=== PATIENT | male | born 1935 | race Caucasian/White ===

== ENCOUNTER 2018-08-15 20:25 | Emergency (ER) | payer MEDICARE, BC ==
[2018-08-15] MEDS ORDERED: traMADol 50 MG Tab PO ONE ×2 (20:26→21:00)
--- NOTE | 2018-08-15 20:39 | EDM.PDOC ---
ED HPI GENERAL MEDICAL PROBLEM - General Stated Complaint: SLIPPED ON ICE Time Seen by Provider: 08/15/18 20:36 Source of Information: Reports: Patient History Limitations: Reports: No Limitations - History of Present Illness INITIAL COMMENTS - FREE TEXT/NARRATIVE: Simone fell,after slipping on ice. He complains of a "goose head" and mild headache,mild neck pain and left wrist pain. No LOC. Has DM 2,HTN,CAD all stable. No anticoagulants,but does take baby aspirin. Uptodate on immunizations Headache, L wrist Pain Score (Numeric/FACES): 4 - Related Data Allergies Allergy/AdvReac Type Severity Reaction Status Date / Time No Known Allergies Allergy Verified 08/15/18 20:35 Home Meds: Home Meds Aspirin [Halfprin] 81 mg PO DAILY 08/15/18 [History] Diltiazem HCl [Diltiazem 24Hr ER] 180 mg DAILY 08/15/18 [History] Lisinopril 40 mg DAILY 08/15/18 [History] Omeprazole 20 mg PO DAILY 08/15/18 [History] amLODIPine Besylate [Norvasc] 5 mg PO DAILY 08/15/18 [History] atorvaSTATin [Lipitor] 10 mg PO BEDTIME 08/15/18 [History] metFORMIN HCl [Metformin HCl] 1,000 mg BID 08/15/18 [History] ED ROS GENERAL - Review of Systems Review Of Systems: ROS reveals no pertinent complaints other than HPI. ED EXAM, HEAD INJURY - Physical Exam Exam: See Below Exam Limited By: No Limitations General Appearance: Alert, WD/WN Head: Scalp Swelling, Scalp Hematoma. No: Atraumatic, Active Bleeding, Facial Lacerations Ears: Normal External Exam Nose: Normal Inspection Throat/Mouth: Normal Inspection Extremities: Other (Neck tenderndess.) Neurologic: paste mixer liquid II-XII nml As Tested, No Motor/Sensory Deficits, Alert, Oriented x 3. No: Motor Weakness Skin: Normal Color Course - Vital Signs Last Recorded V/S: Last Vital Signs Temp 97.4 F 08/15/18 20:27 Pulse 99 08/15/18 20:27 Resp 18 08/15/18 20:27 BP 148/65 H 08/15/18 20:27 Pulse Ox 100 08/15/18 20:27 - Orders/Labs/Meds Orders: Active Orders 24 hr Category Date Time Status Cervical Spine wo Cont [CT] Stat Exams 08/15/18 20:35 Taken Head wo Cont [CT] Stat Exams 08/15/18 20:35 Taken Wrist Comp Min 3V Lt [CR] Stat Exams 08/15/18 20:35 Taken Meds: Medications Discontinued Medications Generic Name Dose Route Start Last Admin Trade Name Kadeem PRN Reason Stop Dose Admin Tramadol HCl 50 mg 08/15/18 21:00 08/15/18 21:04 Ultram PO 08/15/18 21:01 50 mg ONETIME ONE Administration Departure - Departure Time of Disposition: 22:14 Disposition: Home, Self-Care 01 Condition: Fair Clinical Impression: Hematoma, Head injury - Discharge Information Referrals: Brian Navas MD [Primary Care Provider] - - Problem List & Annotations (1) Head injury SNOMED Code(s): 90853971 Code(s): S09.90XA - UNSPECIFIED INJURY OF HEAD, INITIAL ENCOUNTER Status: Acute Current Visit: Yes Qualifiers: Encounter type: initial encounter Qualified Code(s): S09.90XA - Unspecified injury of head, initial encounter (2) Hematoma SNOMED Code(s): 489601980 Code(s): T14.8XXA - OTHER INJURY OF UNSPECIFIED BODY REGION, INITIAL ENCOUNTER Status: Acute Current Visit: Yes - Problem List Review Problem List Initiated/Reviewed/Updated: Yes - My Orders Last 24 Hours: My Active Orders 08/15/18 20:35 Cervical Spine wo Cont [CT] Stat Head wo Cont [CT] Stat Wrist Comp Min 3V Lt [CR] Stat - Assessment/Plan Last 24 Hours: My Active Orders 08/15/18 20:35 Cervical Spine wo Cont [CT] Stat Head wo Cont [CT] Stat Wrist Comp Min 3V Lt [CR] Stat Plan: I personally reviewed the CAT scan of the head and neck there was no acute changes. The official report confirmed the same. X-ray of the left wrist was also negative. Simone score dose of tramadol in the ER with some improvement and discharged to home follow up on Friday with PCP. Prescription of Ultram to 50 mg 3 times a day when necessary inflammation and head injury was provided
--- NOTE | 2018-08-17 10:47 | CR ---
INDICATION: Fell on ice. LEFT WRIST: Three views of the left wrist were obtained 08/15/18 and revealed somewhat demineralized appearance, which could be on the basis of osteomalacia but should be correlated clinically. Degenerative changes are noted to a mild degree at the navicular multangular joints and moderate degree at the first metacarpal carpal joints as well as at the first, second and third metacarpal phalangeal joints and interphalangeal joint of the thumb. An acute fracture or dislocation was not identified. Deformity is noted at the mid-shaft--proximal shaft of the 4th metacarpal compatible with a healed fracture site. IMPRESSION: Demineralized without a definite acute fracture or dislocation and with evidence of osteoarthritis. MTDD
== END 2018-08-15 22:40 | disposition home or self-care (01) ==
LOC: FB.ED 20:25
DX: S09.90XA Unspecified injury of head, initial encounter (principal); Z79.82 Long term (current) use of aspirin; Z79.899 Other long term (current) drug therapy; W00.0XXA Fall on same level due to ice and snow, initial encounter
CPT/HCPCS: 70450; 72125; 73110; 99284; A9270

== ENCOUNTER 2021-05-11 15:57 | Emergency (ER) | payer MEDICARE, BC ==
--- NOTE | 2021-05-11 16:24 | EDM.PDOC ---
ED HPI GENERAL MEDICAL PROBLEM - General Stated Complaint: FALL Time Seen by Provider: 05/11/21 16:24 Source of Information: Reports: Patient History Limitations: Reports: No Limitations - History of Present Illness INITIAL COMMENTS - FREE TEXT/NARRATIVE: 86-year-old male who was at a local casino and at about 2:30 PM he was leaving the casino and stepping off of a step and missed step falling forward landing front first striking both of his hands and also his left elbow and his left forehead. There was no loss of consciousness. He did not feel weak or dizzy prior to this occurring. He states that he simply misstepped and fell. He does have pain in the area the rates as a 7-8/10. He has no neck or back pain. The bleeding has been controlled with direct pressure and the nursing staff and dressed the areas. He denies any vision problems. There are no antecedent problems. He reports he felt completely well prior to this. There are no other associated signs or symptoms. There are no other modifying factors. Onset: Today (2:30 PM) Duration: Constant Location: Reports: Head (Left forehead), Upper Extremity, Left, Upper Extremity, Right Quality: Reports: Ache, Sharp Severity: Moderate Improves with: Reports: Rest Worsens with: Reports: Other (Palpation), Movement Context: Reports: Trauma Associated Symptoms: Reports: No Other Symptoms Treatments [employer]: Reports: Other (see below) (Nothing.) - Related Data Allergies Allergy/AdvReac Type Severity Reaction Status Date / Time No Known Allergies Allergy Verified 05/11/21 16:32 Home Meds: Home Meds Aspirin [Halfprin] 81 mg PO DAILY 08/15/18 [History] Lisinopril 40 mg DAILY 08/15/18 [History] Omeprazole 20 mg PO DAILY 08/15/18 [History] amLODIPine Besylate [Norvasc] 5 mg PO DAILY 08/15/18 [History] atorvaSTATin [Lipitor] 10 mg PO BEDTIME 08/15/18 [History] dilTIAZem HCl [Diltiazem 24Hr ER] 180 mg DAILY 08/15/18 [History] metFORMIN HCl [Metformin HCl] 1,000 mg BID 08/15/18 [History] Past Medical History Cardiovascular History: Reports: High Cholesterol, Hypertension, [place], Stents Gastrointestinal History: Reports: Cholelithiasis, GERD Musculoskeletal History: Reports: Arthritis, Fracture, Gout, Other (See Below) Other Musculoskeletal History: hx congenital R wrist, 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, hx fx pelvis, bursitis Endocrine/Metabolic History: Reports: Diabetes, Type II - Infectious Disease History Infectious Disease History: Reports: Chicken Pox, Measles - Past Surgical History HEENT Surgical History: Reports: Adenoidectomy, Cataract Surgery, Oral Surgery, Tonsillectomy Other HEENT Surgeries/Procedures: bilat cataract surgery Cardiovascular Surgical History: Reports: Coronary Artery Stent GI Surgical History: Reports: Cholecystectomy, Colonoscopy, Hernia Repair/Other Social & Family History - Tobacco Use Tobacco Use Status *Q: Unknown Ever Used Tobacco (Nonsmoker.) - Caffeine Use Caffeine Use: Reports: Coffee, Soda - Alcohol Use Alcohol Use History: Yes Alcohol Use Frequency: Socially - Living Situation & Occupation Occupation: Retired ED ROS GENERAL - Review of Systems Review Of Systems: See Below Constitutional: Denies: Fever, Chills HEENT: Denies: Dental Pain, Ear Pain, Vision Change Respiratory: Denies: Shortness of Breath, Cough Cardiovascular: Denies: Chest Pain, Lightheadedness GI/Abdominal: Denies: Abdominal Pain, Nausea, Vomiting : Denies: Dysuria, Frequency Musculoskeletal: Reports: Arm Pain (In.), Hand Pain (Bilateral hand pain). Denies: Neck Pain Skin: Reports: Wound (Wounds on both hands and left elbow that are all skin tears. Abrasion on his left forehead.) Neurological: Denies: Dizziness, Trouble Speaking Psychiatric: Denies: Agitation, Anxiety Hematologic/Lymphatic: Denies: Easy Bleeding, Easy Bruising Immunologic: Reports: Other (Patient was not up-to-date on his tetanus immunization and was given a Tdap.) ED EXAM, GENERAL - Physical Exam Exam: See Below Exam Limited By: No Limitations General Appearance: Alert, WD/WN, Moderate Distress (Appears in some discomfort but otherwise nontoxic.) Eye Exam: Bilateral Eye: EOMI, Normal Inspection Ears: Normal External Exam, Hearing Grossly Normal Ear Exam: Bilateral Ear: Auricle Normal Nose: Normal Inspection, Normal Mucosa, No Blood (No septal hematoma) Throat/Mouth: Normal Inspection, Normal Oropharynx, Normal Voice, No Airway Compromise Head: Other (Tenderness and abrasion over the left forehead. No crepitus. No bony deformity.) Neck: Normal Inspection, Supple, Non-Tender, Full Range of Motion. No: Tender Midline Respiratory/Chest: No Respiratory Distress, Lungs Clear, Normal Breath Sounds, No Accessory Muscle Use, Chest Non-Tender Cardiovascular: Normal Peripheral Pulses, Regular Rate, Rhythm, No Murmur Peripheral Pulses: 2+: Radial (L), Radial (R), Dorsalis Pedis (L), Dorsalis Pedis (R) GI/Abdominal: Normal Bowel Sounds, Soft, Non-Tender, No Mass Back Exam: Normal Inspection. 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 This is unchanged.) Psychiatric: Normal Affect Skin Exam: Warm, Dry, Normal Color, Wound/Incision Course - Vital Signs Last Recorded V/S: Last Vital Signs Temp 37.0 C 05/11/21 15:57 Pulse 96 05/11/21 15:57 Resp 18 05/11/21 15:57 BP 152/77 H 05/11/21 15:57 Pulse Ox 96 05/11/21 15:57 - Orders/Labs/Meds Meds: Medications Discontinued Medications Generic Name Dose Route Start Last Admin Trade Name Freq PRN Reason Stop Dose Admin Diphtheria/Tetanus/Acell Pertussis 0.5 ml 05/11/21 16:27 05/11/21 17:37 Diphtheria,Pertussis(Acell),Tetanus Vaccine 0.5 Ml Syringe IM 05/11/21 16:28 0.5 ml .ONCE ONE Administration - Radiology Interpretation Free Text/Narrative:: Bilateral hand x-rays reveal no definite fracture per my read. Left elbow x-ray reveals no fracture per my read. There was a possible fracture of the tip of the olecranon process of the ulna. However, the patient really has no pain over this area and there is no effusion here. Therefore he is being treated as a sprain and contusion and he should have use as tolerated with his left elbow. CT scan of the head showed no fracture and no bleeding there are some chronic changes. But no acute changes per my read. - Re-Assessments/Exams Free Text/Narrative Re-Assessment/Exam: 05/11/21 19:26: X-rays of the patient's hands show no definite fracture. X-ray of the left elbow shows no definite fracture. The CT scan of the head showed no bleeding or fracture. The patient has remained awake and alert and hemodynamically and neurologically stable while in the emergency department. The patient was given a Tdap immunization to bring his tetanus immunization status up-to-date. The patient's wounds were cleaned, bacitracin was applied and appropriate dressings were applied. The patient can take ibuprofen and Tylenol as needed for pain. Precautions and reasons for return to the emergency department were discussed with the patient while he was in the emergency department for detailed in the patient's discharge instructions. Departure - Departure Time of Disposition: 19:32 Disposition: Home, Self-Care 01 Condition: Good (Stable) Clinical Impression: Abrasion of left elbow, initial encounter Head contusion Qualifiers: Encounter type: initial encounter Contusion of head detail: other part of head Qualified Code(s): S00.83XA - Contusion of other part of head, initial encounter Forehead abrasion Qualifiers: Encounter type: initial encounter Qualified Code(s): S00.81XA - Abrasion of other part of head, initial encounter Hand contusion Qualifiers: Encounter type: initial encounter Laterality: unspecified laterality Qualified Code(s): S60.229A - Contusion of unspecified hand, initial encounter Hand abrasion Qualifiers: Encounter type: initial encounter Laterality: unspecified laterality Qualified Code(s): S60.519A - Abrasion of unspecified hand, initial encounter Left elbow contusion Qualifiers: Encounter type: initial encounter Qualified Code(s): S50.02XA - Contusion of left elbow, initial encounter Fall on same level from stumbling Qualifiers: Encounter type: initial encounter Qualified Code(s): W01.0XXA - Fall on same level from slipping, tripping and stumbling without subsequent striking against object, initial encounter - Discharge Information Instructions: Hand Contusion, [id number], Elbow Contusion, [id number], Head Injury, Adult, [id number], Abrasion, [id number] Referrals: Brian Navas MD [Primary Care Provider] - Forms: ED Department Discharge Additional Instructions: The CT scan of your head showed no bleeding and no fracture. The x-rays of both hands showed no definite fractures. The x-ray of your left elbow showed no fracture. You appear to have bruises and scrapes. You can take ibuprofen and Tylenol as needed for pain. Leave the dressings intact on your hands and your left elbow for 24 hours. Then you can lightly clean the wounds and apply bacitracin and dressings daily. Back to the emergency department for vomiting, marked increase in pain, redness, any signs of infection or any other concerning signs or symptoms. You were given a Tdap immunization today.
[2021-05-11] MEDS ORDERED: Diphtheria,Pertussis(Acell),Tetanus Vaccine 0.5 ML Syringe IM ONE (16:27)
--- NOTE | 2021-05-11 21:50 | CT ---
INDICATION: Fall with injury. The patient fell, hitting left frontal head area. HEAD CT WITHOUT CONTRAST: Spiral 3.75 mm axial sections were obtained through the brain without contrast with axial, sagittal and coronal reconstructions, 05/11/21 and compared with 08/15/18. TOTAL EXAM DLP: 1348.07 mGy/cm. There is a scalp hematoma at the left frontal area, but no underlying cranial fracture site was seen. The orbits appeared intact. There is irregular-shaped apparent retention cyst in the right maxillary antrum and thickening of the lining. There is an opacified posterior left ethmoidal air cell. The paranasal sinuses and mastoid air cells were otherwise well aerated. As mentioned above, no cranial fracture site was seen. Calcifications are noted in the vertebral and internal carotid arteries. No shift of midline structures is noted. The ventricles are prominent, compatible with central atrophy with marked prominence of the left lateral ventricle due to an apparent large area of encephalomalacia in the left frontoparietal white matter with marked enlargement of the left lateral ventricle. There are some white matter changes additionally, compatible with mild microvascular disease. No evidence of a bleeding site or hematoma, or other definite acute intracranial abnormality or gross significant interval change compared with 08/15/18 could be identified. IMPRESSION: 1. No definite acute intracranial abnormality. 2. 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 3. Large apparent area of encephalomalacia in the frontoparietal white matter with marked enlargement of the left ventricle subsequently. 4. Possible sinusitis - possibly chronic inflammatory disease, in the right maxillary antrum. The report was called to Dr. Hernandez at approximately 2110 hours. [facility]
--- NOTE | 2021-05-11 21:54 | CR ---
INDICATION: Fall with injury. LEFT ELBOW: Frontal and lateral views of the left elbow revealed no evidence of joint effusion or gross fracture site of a definite acute nature. However, the possibility of a small chip fracture fragment at the coronary process with slight angulation and separation of the fracture fragments is a consideration, versus an old unhealed chip fracture fragment in that area. There are also noted some minimal degenerative changes at the medial elbow joint compartment. No other significant-appearing bone or joint abnormality was identified, except for question of some mild overall demineralization. The report was called to Dr. Hernandez at approximately 2110 hours. [facility]
--- NOTE | 2021-05-11 22:00 | CR ---
INDICATION: Fall with injury. BILATERAL HANDS: Three views of the hands were obtained 05/11/21 - no comparisons. In the left hand, there are degenerative hypertrophic changes - osteoarthritis of at least moderate degree at the interphalangeal joint of the thumb and at the first metacarpal carpal joint with more moderate degenerative changes at the first metatarsophalangeal joint. Degenerative changes are also noted at the second and third metacarpophalangeal joints and at the DIPJs of the second and third fingers and also at the fifth finger. Overall demineralization is suggested compatible with osteoporosis. There is some deformity of the shaft of the fourth metacarpal with shortening of the metacarpal, likely on the basis of previous healed fracture site. However, a definite acute fracture or dislocation was not identified. IMPRESSION: 1. No definite acute fracture or dislocation. 2. Osteoarthritis of the left hand. 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 Degenerative changes are noted at multiple joints without a definite acute fracture or dislocation. These reports were called to Dr. Hernandez at approximately 2110 hours. [facility]
== END 2021-05-11 19:59 | disposition home or self-care (01) ==
LOC: FB.ED 15:57
DX: S00.83XA Contusion of other part of head, initial encounter (principal); S50.02XA Contusion of left elbow, initial encounter; E78.00 Pure hypercholesterolemia, unspecified; I10 Essential (primary) hypertension; I25.2 Old myocardial infarction; K21.9 Gastro-esophageal reflux disease without esophagitis; E11.9 Type 2 diabetes mellitus without complications; Z79.82 Long term (current) use of aspirin; Z79.899 Other long term (current) drug therapy; Z23 Encounter for immunization; W01.198A Fall on same level from slipping, tripping and stumbling with subsequent striking against other object, initial encounter
CPT/HCPCS: 70450; 73070-LT; 73130-50; 90471; 90715; 99284-25

== ENCOUNTER 2021-08-04 21:04 | Emergency (ER) | payer MEDICARE, BC ==
--- NOTE | 2021-08-04 21:42 | EDM.PDOC ---
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 He was sitting on the chair and reached down to try to pull his pants up and thinks he must of been sitting on the chair incorrectly. He fell off and landed on the side of the tub on his right hip and had immediate and severe pain. As he fell to the floor he also struck the right side of his head just above his right synagogue. He did not lose consciousness. He had extreme pain. EMS was called. He was given Zofran and a total of 100 mcg of fentanyl by EMS on his way to the emergency department. He denies chest pain, fever, chills, shortness of breath, change in bowel or bladder habits. - Related Data Allergies Allergy/AdvReac Type Severity Reaction Status Date / Time No Known Allergies Allergy Verified 05/11/21 16:32 Home Meds: Home Meds Aspirin [Halfprin] 81 mg PO DAILY 08/15/18 [History] Lisinopril 40 mg DAILY 08/15/18 [History] Omeprazole 20 mg PO DAILY 08/15/18 [History] amLODIPine Besylate [Norvasc] 5 mg PO DAILY 08/15/18 [History] atorvaSTATin [Lipitor] 10 mg PO BEDTIME 08/15/18 [History] dilTIAZem HCl [Diltiazem 24Hr ER] 180 mg DAILY 08/15/18 [History] metFORMIN HCl [Metformin HCl] 1,000 mg BID 08/15/18 [History] Past Medical History Cardiovascular History: Reports: High Cholesterol, Hypertension, [place], Stents Gastrointestinal History: Reports: Cholelithiasis, GERD Musculoskeletal History: Reports: Arthritis, Fracture, Gout, Other (See Below) Other Musculoskeletal History: hx congenital R wrist, 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, hx fx pelvis, bursitis Endocrine/Metabolic History: Reports: Diabetes, Type II - Infectious Disease History Infectious Disease History: Reports: Chicken Pox, Measles - Past Surgical History HEENT Surgical History: Reports: Adenoidectomy, Cataract Surgery, Oral Surgery, Tonsillectomy Other HEENT Surgeries/Procedures: bilat cataract surgery Cardiovascular Surgical History: Reports: Coronary Artery Stent GI Surgical History: Reports: Cholecystectomy, Colonoscopy, Hernia Repair/Other Social & Family History - Family History Family Medical History: No Pertinent Family History - Caffeine Use Caffeine Use: Reports: Coffee - Living Situation & Occupation Occupation: Retired Review of Systems - Review of Systems Review Of Systems: See Below Constitutional: Reports: No Symptoms Eyes: Reports: No Symptoms Ears: Reports: No Symptoms Nose: Reports: No Symptoms Mouth/Throat: Reports: No Symptoms Respiratory: Reports: No Symptoms Cardiovascular: Reports: No Symptoms GI/Abdominal: Reports: No Symptoms Genitourinary: Reports: No Symptoms Musculoskeletal: Reports: Leg Pain, Joint Pain Skin: Reports: No Symptoms Neurological: Reports: Pre-Existing Deficit Psychiatric: Reports: No Symptoms ED EXAM, GENERAL - Physical Exam Exam: See Below Exam Limited By: No Limitations General Appearance: Alert, Mild Distress Eye Exam: Bilateral Eye: EOMI, PERRL Head: Other (Mild abrasion with a very small amount of edema and erythema, approximately 2 x 3 cm just superior to the right synagogue, mild tenderness to palpation, no crepitus) Neck: Normal Inspection, Non-Tender. No: Tender Midline Respiratory/Chest: Crackles Cardiovascular: Regular Rate, Rhythm GI/Abdominal: Normal Bowel Sounds, Soft, Non-Tender Extremities: Pedal Edema, Other (2-3+ pitting edema bilateral lower extremities. Patient was able to flex his hip and knee very slightly but had significant pain. Patient has congenital defect he has never been able to move his ankle or toes, sensation intact) Neurological: Alert, Oriented, Normal Cognition Psychiatric: Normal Affect Skin Exam: Warm, Dry Course - Vital Signs Text/Narrative:: Review of x-ray shows intertrochanteric fracture of the right hip. Patient is negative for Covid and influenza. - Orders/Labs/Meds Orders: Active Orders 24 hr Category Date Time Status Hip Min 2V or 3V w Pelvis Rt [CR] Stat Exams 08/04/21 22:02 Taken Labs: Laboratory Tests 08/04/21 Range/Units 22:15 Influenza Type A RNA Negative (NEGATIVE) Influenza Type B RNA Negative (NEGATIVE) SARS-CoV-2 RNA ([facility]Y) Negative (NEGATIVE) Meds: Medications Discontinued Medications Generic Name Dose Route Start Last Admin Trade Name Kadeem PRN Reason Stop Dose Admin Morphine Sulfate 4 mg 08/04/21 23:05 08/04/21 23:09 Morphine 4 Mg/Ml Vial IVPUSH 08/04/21 23:06 4 mg ONETIME ONE Administration Ondansetron HCl 4 mg 08/04/21 23:05 08/04/21 23:09 Ondansetron 4 Mg/2 Ml Sdv IVPUSH 08/04/21 23:06 4 mg ONETIME ONE Administration Departure - Departure Time of Disposition: 00:10 Disposition: DC/Tfer to Acute Hospital 02 Condition: Fair Clinical Impression: Hip fracture - Discharge Information *PRESCRIPTION DRUG MONITORING PROGRAM REVIEWED*: Not Applicable *COPY OF PRESCRIPTION DRUG MONITORING REPORT IN PATIENT JOSAFAT: Not Applicable Referrals: Brian Navas MD [Primary Care Provider] - Forms: ED Department Discharge - My Orders Last 24 Hours: My Active Orders 08/04/21 22:02 Hip Min 2V or 3V w Pelvis Rt [CR] Stat - Assessment/Plan Last 24 Hours: My Active Orders 08/04/21 22:02 Hip Min 2V or 3V w Pelvis Rt [CR] Stat
[2021-08-04] MEDS ORDERED: Ondansetron 4 MG/2 ML SDV IVPUSH ONE (23:05)
[2021-08-04] MEDS ORDERED: Morphine 4 MG/ML VIAL IVPUSH ONE (23:05)
[2021-08-04 23:07] LABS: CORONAVIRUS COVID-19 NAA NEGATIVE (NEGATIVE)
[2021-08-05] MEDS ORDERED: Morphine 4 MG/ML VIAL IVPUSH ONE (00:36)
[2021-08-05] MEDS ORDERED: Sodium Chloride 0.9% 10 ML Syringe FLUSH PRN (00:51)
== END 2021-08-05 01:15 ==
LOC: FB.ED 21:04
DX: S72.141A Displaced intertrochanteric fracture of right femur, initial encounter for closed fracture (principal); E78.00 Pure hypercholesterolemia, unspecified; I10 Essential (primary) hypertension; I25.2 Old myocardial infarction; K21.9 Gastro-esophageal reflux disease without esophagitis; M10.9 Gout, unspecified; E11.9 Type 2 diabetes mellitus without complications; Z79.82 Long term (current) use of aspirin; Z79.84 Long term (current) use of oral hypoglycemic drugs; Z79.899 Other long term (current) drug therapy; Z20.822 Contact with and (suspected) exposure to COVID-19; W07.XXXA Fall from chair, initial encounter; Y92.002 Bathroom of unspecified non-institutional (private) residence as the place of occurrence of the external cause
CPT/HCPCS: 0240U; 73502; 96374; 96375; 96376; 99284; J2270; J2405; 99285

== ENCOUNTER 2021-08-09 08:02 | Inpatient (IN) | payer MEDICARE, BC ==
[2021-08-09] MEDS ORDERED: oxyCODONE 5 MG Tab PO PRN (13:12)
[2021-08-09] MEDS: metFORMIN 500 MG Tab PO SCH (17:46)
[2021-08-09] MEDS: oxyCODONE 5 MG Tab PO PRN (19:22)
[2021-08-09] MEDS: Melatonin 3 MG Tab PO SCH (20:11)
[2021-08-09] MEDS: Allopurinol 100 MG Tab PO SCH (20:12)
[2021-08-09] MEDS: atorvaSTATin 10 MG Tab PO SCH (20:12)
[2021-08-09] MEDS ORDERED: Melatonin 3 MG Tab PO PRN (21:00)
[2021-08-10] MEDS: oxyCODONE 5 MG Tab PO PRN ×5 (03:01→20:36)
[2021-08-10] MEDS: Pantoprazole 20 MG Tab, Delayed Release PO SCH (06:38)
[2021-08-10] MEDS: metFORMIN 500 MG Tab PO SCH ×2 (09:08→18:29)
[2021-08-10] MEDS ORDERED: Bisacodyl 10 MG Supp RECTAL PRN (09:12)
[2021-08-10] MEDS: amLODIPine 5 MG Tab PO SCH (09:16)
[2021-08-10] MEDS: Aspirin 81 MG Tab.EC PO SCH (09:18)
[2021-08-10] MEDS: Hydrochlorothiazide 12.5 MG Cap PO SCH (09:20)
[2021-08-10] MEDS: Diltiazem 180 MG Cap.CD PO SCH (09:21)
[2021-08-10] MEDS: Finasteride 5 MG Tab PO SCH (09:21)
[2021-08-10] MEDS: Allopurinol 100 MG Tab PO SCH ×2 (09:22→20:36)
[2021-08-10] MEDS: Enoxaparin 30 MG/0.3 ML Syringe SUBCUT SCH (09:22)
[2021-08-10] MEDS: atorvaSTATin 10 MG Tab PO SCH (20:36)
[2021-08-10] MEDS: Melatonin 3 MG Tab PO SCH (20:37)
[2021-08-11] MEDS: oxyCODONE 5 MG Tab PO PRN ×5 (00:36→21:23)
[2021-08-11] MEDS: Pantoprazole 20 MG Tab, Delayed Release PO SCH (05:00)
[2021-08-11] MEDS: metFORMIN 500 MG Tab PO SCH ×2 (08:01→17:16)
[2021-08-11] MEDS: Aspirin 81 MG Tab.EC PO SCH (08:11)
[2021-08-11] MEDS: Hydrochlorothiazide 12.5 MG Cap PO SCH (08:12)
[2021-08-11] MEDS: amLODIPine 5 MG Tab PO SCH (08:12)
[2021-08-11] MEDS: Finasteride 5 MG Tab PO SCH (08:13)
[2021-08-11] MEDS: Diltiazem 180 MG Cap.CD PO SCH (08:13)
[2021-08-11] MEDS: Enoxaparin 30 MG/0.3 ML Syringe SUBCUT SCH (08:14)
[2021-08-11] MEDS: Allopurinol 100 MG Tab PO SCH ×2 (08:15→21:22)
[2021-08-11] MEDS: Melatonin 3 MG Tab PO SCH (21:22)
[2021-08-11] MEDS: atorvaSTATin 10 MG Tab PO SCH (21:22)
[2021-08-12] MEDS: oxyCODONE 5 MG Tab PO PRN ×2 (02:18→08:50)
[2021-08-12] MEDS: Pantoprazole 20 MG Tab, Delayed Release PO SCH (05:08)
[2021-08-12] MEDS: metFORMIN 500 MG Tab PO SCH ×2 (08:42→17:38)
[2021-08-12] MEDS: Diltiazem 180 MG Cap.CD PO SCH (08:43)
[2021-08-12] MEDS: Finasteride 5 MG Tab PO SCH (08:44)
[2021-08-12] MEDS: Hydrochlorothiazide 12.5 MG Cap PO SCH (08:45)
[2021-08-12] MEDS: Allopurinol 100 MG Tab PO SCH ×2 (08:45→20:21)
[2021-08-12] MEDS: Aspirin 81 MG Tab.EC PO SCH (08:45)
[2021-08-12] MEDS: Enoxaparin 30 MG/0.3 ML Syringe SUBCUT SCH (08:46)
[2021-08-12] MEDS: amLODIPine 5 MG Tab PO SCH (08:47)
[2021-08-12] MEDS: Acetaminophen 500 MG Tab PO SCH ×3 (13:16→20:22)
[2021-08-12] MEDS: atorvaSTATin 10 MG Tab PO SCH (20:21)
[2021-08-12] MEDS: Melatonin 3 MG Tab PO SCH (20:22)
[2021-08-13] MEDS: Acetaminophen 500 MG Tab PO SCH ×6 (00:56→20:52)
[2021-08-13] MEDS: oxyCODONE 5 MG Tab PO PRN ×5 (02:15→23:27)
[2021-08-13] MEDS: Pantoprazole 20 MG Tab, Delayed Release PO SCH (05:21)
[2021-08-13] MEDS: metFORMIN 500 MG Tab PO SCH ×2 (09:19→17:01)
[2021-08-13] MEDS: Hydrochlorothiazide 12.5 MG Cap PO SCH (09:20)
[2021-08-13] MEDS: Allopurinol 100 MG Tab PO SCH ×2 (09:20→20:53)
[2021-08-13] MEDS: Diltiazem 180 MG Cap.CD PO SCH (09:21)
[2021-08-13] MEDS: Aspirin 81 MG Tab.EC PO SCH (09:21)
[2021-08-13] MEDS: amLODIPine 5 MG Tab PO SCH (09:21)
[2021-08-13] MEDS: Finasteride 5 MG Tab PO SCH (09:21)
[2021-08-13] MEDS: Enoxaparin 30 MG/0.3 ML Syringe SUBCUT SCH (09:22)
[2021-08-13] MEDS: atorvaSTATin 10 MG Tab PO SCH (20:51)
[2021-08-13] MEDS: Melatonin 3 MG Tab PO SCH (20:52)
[2021-08-14] MEDS: Acetaminophen 500 MG Tab PO SCH ×6 (00:27→21:00)
[2021-08-14] MEDS: Pantoprazole 20 MG Tab, Delayed Release PO SCH (05:53)
[2021-08-14] MEDS: Finasteride 5 MG Tab PO SCH (08:29)
[2021-08-14] MEDS: metFORMIN 500 MG Tab PO SCH ×2 (08:29→18:00)
[2021-08-14] MEDS: Aspirin 81 MG Tab.EC PO SCH (08:31)
[2021-08-14] MEDS: Enoxaparin 30 MG/0.3 ML Syringe SUBCUT SCH (08:32)
[2021-08-14] MEDS: Allopurinol 100 MG Tab PO SCH ×2 (08:34→21:01)
[2021-08-14] MEDS: Diltiazem 180 MG Cap.CD PO SCH (10:55)
[2021-08-14] MEDS: Hydrochlorothiazide 12.5 MG Cap PO SCH (10:56)
[2021-08-14] MEDS: amLODIPine 5 MG Tab PO SCH (10:56)
[2021-08-14] MEDS: oxyCODONE 5 MG Tab PO PRN (11:07)
[2021-08-14] MEDS: Melatonin 3 MG Tab PO SCH (21:01)
[2021-08-14] MEDS: atorvaSTATin 10 MG Tab PO SCH (21:01)
[2021-08-15] MEDS: Acetaminophen 500 MG Tab PO SCH ×6 (00:32→21:03)
[2021-08-15] MEDS: oxyCODONE 5 MG Tab PO PRN ×3 (01:36→21:01)
[2021-08-15] MEDS: Pantoprazole 20 MG Tab, Delayed Release PO SCH (06:22)
[2021-08-15] MEDS: metFORMIN 500 MG Tab PO SCH ×2 (08:39→17:02)
[2021-08-15] MEDS: Aspirin 81 MG Tab.EC PO SCH (08:40)
[2021-08-15] MEDS: Finasteride 5 MG Tab PO SCH (08:40)
[2021-08-15] MEDS: Diltiazem 180 MG Cap.CD PO SCH (08:40)
[2021-08-15] MEDS: amLODIPine 5 MG Tab PO SCH (08:41)
[2021-08-15] MEDS: Hydrochlorothiazide 12.5 MG Cap PO SCH (08:43)
[2021-08-15] MEDS: Allopurinol 100 MG Tab PO SCH ×2 (08:43→21:02)
[2021-08-15] MEDS: Enoxaparin 30 MG/0.3 ML Syringe SUBCUT SCH (08:44)
[2021-08-15] MEDS: Naproxen 500 MG Tab PO PRN (16:59)
[2021-08-15] MEDS: Melatonin 3 MG Tab PO SCH (21:02)
[2021-08-15] MEDS: atorvaSTATin 10 MG Tab PO SCH (21:02)
[2021-08-16] MEDS: Acetaminophen 500 MG Tab PO SCH ×6 (01:00→20:59)
[2021-08-16] MEDS: Pantoprazole 20 MG Tab, Delayed Release PO SCH (05:50)
[2021-08-16] MEDS: metFORMIN 500 MG Tab PO SCH ×2 (08:25→18:00)
[2021-08-16] MEDS: Aspirin 81 MG Tab.EC PO SCH (08:26)
[2021-08-16] MEDS: Diltiazem 180 MG Cap.CD PO SCH (08:26)
[2021-08-16] MEDS: Hydrochlorothiazide 12.5 MG Cap PO SCH (08:26)
[2021-08-16] MEDS: Enoxaparin 30 MG/0.3 ML Syringe SUBCUT SCH (08:26)
[2021-08-16] MEDS: Finasteride 5 MG Tab PO SCH (08:26)
[2021-08-16] MEDS: Allopurinol 100 MG Tab PO SCH ×2 (08:27→21:00)
[2021-08-16] MEDS: amLODIPine 5 MG Tab PO SCH (08:31)
[2021-08-16] MEDS: oxyCODONE 5 MG Tab PO PRN (09:31)
[2021-08-16] MEDS: Naproxen 500 MG Tab PO PRN (12:07)
[2021-08-16] MEDS: Melatonin 3 MG Tab PO SCH (20:59)
[2021-08-16] MEDS: atorvaSTATin 10 MG Tab PO SCH (20:59)
[2021-08-17] MEDS: Acetaminophen 500 MG Tab PO SCH ×6 (00:43→20:33)
[2021-08-17] MEDS: oxyCODONE 5 MG Tab PO PRN ×3 (01:25→20:43)
[2021-08-17] MEDS: Pantoprazole 20 MG Tab, Delayed Release PO SCH (05:58)
[2021-08-17] MEDS: metFORMIN 500 MG Tab PO SCH ×2 (08:20→17:37)
[2021-08-17] MEDS: Hydrochlorothiazide 12.5 MG Cap PO SCH (08:21)
[2021-08-17] MEDS: Enoxaparin 30 MG/0.3 ML Syringe SUBCUT SCH (08:23)
[2021-08-17] MEDS: Aspirin 81 MG Tab.EC PO SCH (08:23)
[2021-08-17] MEDS: Diltiazem 180 MG Cap.CD PO SCH (08:23)
[2021-08-17] MEDS: amLODIPine 5 MG Tab PO SCH (08:24)
[2021-08-17] MEDS: Finasteride 5 MG Tab PO SCH (08:24)
[2021-08-17] MEDS: Allopurinol 100 MG Tab PO SCH ×2 (08:26→20:35)
[2021-08-17] MEDS: Naproxen 500 MG Tab PO PRN (16:08)
[2021-08-17] MEDS: atorvaSTATin 10 MG Tab PO SCH (20:28)
[2021-08-17] MEDS: Melatonin 3 MG Tab PO SCH (20:28)
[2021-08-18] MEDS: Acetaminophen 500 MG Tab PO SCH ×6 (01:29→21:13)
[2021-08-18] MEDS: Pantoprazole 20 MG Tab, Delayed Release PO SCH (05:07)
[2021-08-18] MEDS: oxyCODONE 5 MG Tab PO PRN ×2 (07:34→16:26)
[2021-08-18] MEDS: metFORMIN 500 MG Tab PO SCH ×2 (07:36→17:49)
[2021-08-18] MEDS: Aspirin 81 MG Tab.EC PO SCH (08:45)
[2021-08-18] MEDS: Diltiazem 180 MG Cap.CD PO SCH (08:45)
[2021-08-18] MEDS: Allopurinol 100 MG Tab PO SCH ×2 (08:45→21:14)
[2021-08-18] MEDS: Finasteride 5 MG Tab PO SCH (08:45)
[2021-08-18] MEDS: amLODIPine 5 MG Tab PO SCH (08:48)
[2021-08-18] MEDS: Enoxaparin 30 MG/0.3 ML Syringe SUBCUT SCH (08:49)
[2021-08-18] MEDS: Hydrochlorothiazide 12.5 MG Cap PO SCH (08:50)
[2021-08-18] MEDS: atorvaSTATin 10 MG Tab PO SCH (21:13)
[2021-08-18] MEDS: Melatonin 3 MG Tab PO SCH (21:13)
[2021-08-19] MEDS: Pantoprazole 20 MG Tab, Delayed Release PO SCH (05:05)
[2021-08-19] MEDS: Acetaminophen 500 MG Tab PO SCH ×6 (05:06→20:25)
[2021-08-19] MEDS: metFORMIN 500 MG Tab PO SCH ×2 (09:07→18:28)
[2021-08-19] MEDS: Aspirin 81 MG Tab.EC PO SCH (09:07)
[2021-08-19] MEDS: amLODIPine 5 MG Tab PO SCH (09:09)
[2021-08-19] MEDS: Hydrochlorothiazide 12.5 MG Cap PO SCH (09:10)
[2021-08-19] MEDS: Enoxaparin 30 MG/0.3 ML Syringe SUBCUT SCH (09:10)
[2021-08-19] MEDS: Diltiazem 180 MG Cap.CD PO SCH (09:10)
[2021-08-19] MEDS: Finasteride 5 MG Tab PO SCH (09:11)
[2021-08-19] MEDS: Allopurinol 100 MG Tab PO SCH ×2 (09:11→20:25)
[2021-08-19] MEDS: Naproxen 500 MG Tab PO SCH ×2 (09:20→20:24)
[2021-08-19] MEDS: oxyCODONE 5 MG Tab PO PRN (18:28)
[2021-08-19] MEDS: atorvaSTATin 10 MG Tab PO SCH (20:24)
[2021-08-19] MEDS: Melatonin 3 MG Tab PO SCH (20:24)
[2021-08-20] MEDS: Acetaminophen 500 MG Tab PO SCH ×6 (00:26→21:06)
[2021-08-20] MEDS: Pantoprazole 20 MG Tab, Delayed Release PO SCH (05:39)
[2021-08-20] MEDS: metFORMIN 500 MG Tab PO SCH ×2 (07:57→17:44)
[2021-08-20] MEDS: Diltiazem 180 MG Cap.CD PO SCH (08:01)
[2021-08-20] MEDS: Enoxaparin 30 MG/0.3 ML Syringe SUBCUT SCH (08:02)
[2021-08-20] MEDS: Aspirin 81 MG Tab.EC PO SCH (08:02)
[2021-08-20] MEDS: Hydrochlorothiazide 12.5 MG Cap PO SCH (08:02)
[2021-08-20] MEDS: Finasteride 5 MG Tab PO SCH (08:04)
[2021-08-20] MEDS: amLODIPine 5 MG Tab PO SCH (08:04)
[2021-08-20] MEDS: Allopurinol 100 MG Tab PO SCH ×2 (08:06→21:07)
[2021-08-20] MEDS: Naproxen 500 MG Tab PO SCH ×2 (08:19→21:07)
[2021-08-20] MEDS: oxyCODONE 5 MG Tab PO PRN ×2 (12:00→23:11)
[2021-08-20] MEDS: atorvaSTATin 10 MG Tab PO SCH (21:06)
[2021-08-20] MEDS: Melatonin 3 MG Tab PO SCH (21:07)
[2021-08-21] MEDS: Acetaminophen 500 MG Tab PO SCH ×6 (01:58→21:12)
[2021-08-21] MEDS: Pantoprazole 20 MG Tab, Delayed Release PO SCH (05:51)
[2021-08-21] MEDS: Naproxen 500 MG Tab PO SCH ×2 (08:28→21:12)
[2021-08-21] MEDS: Hydrochlorothiazide 12.5 MG Cap PO SCH (08:29)
[2021-08-21] MEDS: Diltiazem 180 MG Cap.CD PO SCH (08:29)
[2021-08-21] MEDS: amLODIPine 5 MG Tab PO SCH (08:29)
[2021-08-21] MEDS: Allopurinol 100 MG Tab PO SCH ×2 (08:29→21:13)
[2021-08-21] MEDS: Finasteride 5 MG Tab PO SCH (08:29)
[2021-08-21] MEDS: Aspirin 81 MG Tab.EC PO SCH (08:29)
[2021-08-21] MEDS: Enoxaparin 30 MG/0.3 ML Syringe SUBCUT SCH (08:29)
[2021-08-21] MEDS: metFORMIN 500 MG Tab PO SCH ×2 (08:30→17:35)
[2021-08-21] MEDS ORDERED: Polyethylene Glycol 3350 Powder 17 GM Packet PO PRN (09:54)
[2021-08-21] MEDS ORDERED: Polyethylene Glycol 3350 Powder 17 GM Packet PO SCH (10:00)
[2021-08-21] MEDS: oxyCODONE 5 MG Tab PO PRN (10:10)
[2021-08-21] MEDS ORDERED: Tamsulosin 0.4 MG Cap.ER PO SCH (21:00)
[2021-08-21] MEDS: atorvaSTATin 10 MG Tab PO SCH (21:12)
[2021-08-21] MEDS: traZODone 50 MG Tab PO SCH (21:12)
[2021-08-22] MEDS: Acetaminophen 500 MG Tab PO SCH ×6 (00:50→22:06)
[2021-08-22] MEDS: oxyCODONE 5 MG Tab PO PRN ×3 (03:12→15:06)
[2021-08-22] MEDS: Pantoprazole 20 MG Tab, Delayed Release PO SCH (05:26)
[2021-08-22] MEDS: Diltiazem 180 MG Cap.CD PO SCH (08:36)
[2021-08-22] MEDS: metFORMIN 500 MG Tab PO SCH ×2 (08:36→18:31)
[2021-08-22] MEDS: Finasteride 5 MG Tab PO SCH (08:38)
[2021-08-22] MEDS: Aspirin 81 MG Tab.EC PO SCH (08:38)
[2021-08-22] MEDS: Allopurinol 100 MG Tab PO SCH ×2 (08:38→22:06)
[2021-08-22] MEDS: Naproxen 500 MG Tab PO SCH ×2 (08:38→22:05)
[2021-08-22] MEDS: Tamsulosin 0.4 MG Cap.ER PO SCH ×2 (08:40→19:32)
[2021-08-22] MEDS: Enoxaparin 30 MG/0.3 ML Syringe SUBCUT SCH (08:40)
[2021-08-22] MEDS: atorvaSTATin 10 MG Tab PO SCH (22:05)
[2021-08-22] MEDS: traZODone 50 MG Tab PO SCH (22:05)
[2021-08-22] MEDS: oxyCODONE 5 MG Tab PO SCH (22:05)
[2021-08-23] MEDS: Acetaminophen 500 MG Tab PO SCH ×6 (00:43→20:50)
[2021-08-23] MEDS: Pantoprazole 20 MG Tab, Delayed Release PO SCH (05:39)
[2021-08-23] MEDS: metFORMIN 500 MG Tab PO SCH ×2 (09:14→18:19)
[2021-08-23] MEDS: Diltiazem 180 MG Cap.CD PO SCH (09:15)
[2021-08-23] MEDS: Enoxaparin 30 MG/0.3 ML Syringe SUBCUT SCH (09:16)
[2021-08-23] MEDS: Aspirin 81 MG Tab.EC PO SCH (09:16)
[2021-08-23] MEDS: Tamsulosin 0.4 MG Cap.ER PO SCH ×2 (09:16→18:19)
[2021-08-23] MEDS: Finasteride 5 MG Tab PO SCH (09:17)
[2021-08-23] MEDS: Naproxen 500 MG Tab PO SCH ×2 (09:17→20:48)
[2021-08-23] MEDS: Allopurinol 100 MG Tab PO SCH ×2 (09:18→20:50)
[2021-08-23] MEDS: atorvaSTATin 10 MG Tab PO SCH (20:47)
[2021-08-23] MEDS: oxyCODONE 5 MG Tab PO SCH (20:48)
[2021-08-23] MEDS: traZODone 50 MG Tab PO SCH (20:49)
[2021-08-24] MEDS: Acetaminophen 500 MG Tab PO SCH ×6 (00:17→20:36)
[2021-08-24] MEDS: Pantoprazole 20 MG Tab, Delayed Release PO SCH (05:08)
[2021-08-24] MEDS: Diltiazem 180 MG Cap.CD PO SCH (09:02)
[2021-08-24] MEDS: metFORMIN 500 MG Tab PO SCH ×2 (09:02→18:14)
[2021-08-24] MEDS: Aspirin 81 MG Tab.EC PO SCH (09:04)
[2021-08-24] MEDS: Tamsulosin 0.4 MG Cap.ER PO SCH ×2 (09:04→18:50)
[2021-08-24] MEDS: Enoxaparin 30 MG/0.3 ML Syringe SUBCUT SCH (09:04)
[2021-08-24] MEDS: Finasteride 5 MG Tab PO SCH (09:07)
[2021-08-24] MEDS: Naproxen 500 MG Tab PO SCH ×2 (09:07→20:36)
[2021-08-24] MEDS: Allopurinol 100 MG Tab PO SCH ×2 (09:08→20:40)
[2021-08-24] MEDS: oxyCODONE 5 MG Tab PO PRN ×2 (11:01→16:34)
[2021-08-24] MEDS: atorvaSTATin 10 MG Tab PO SCH (20:36)
[2021-08-24] MEDS: oxyCODONE 5 MG Tab PO SCH (20:39)
[2021-08-24] MEDS: traZODone 50 MG Tab PO SCH (20:40)
[2021-08-25] MEDS: Acetaminophen 500 MG Tab PO SCH ×6 (01:37→20:59)
[2021-08-25] MEDS: oxyCODONE 5 MG Tab PO PRN ×2 (01:38→17:08)
[2021-08-25] MEDS: Pantoprazole 20 MG Tab, Delayed Release PO SCH (06:00)
[2021-08-25] MEDS: Aspirin 81 MG Tab.EC PO SCH (08:30)
[2021-08-25] MEDS: Naproxen 500 MG Tab PO SCH ×2 (08:30→20:58)
[2021-08-25] MEDS: Finasteride 5 MG Tab PO SCH (08:30)
[2021-08-25] MEDS: metFORMIN 500 MG Tab PO SCH ×2 (08:30→17:06)
[2021-08-25] MEDS: Tamsulosin 0.4 MG Cap.ER PO SCH ×2 (08:30→18:44)
[2021-08-25] MEDS: Enoxaparin 30 MG/0.3 ML Syringe SUBCUT SCH (08:31)
[2021-08-25] MEDS: Allopurinol 100 MG Tab PO SCH ×2 (08:31→20:59)
[2021-08-25] MEDS: Diltiazem 180 MG Cap.CD PO SCH (08:31)
[2021-08-25] MEDS: atorvaSTATin 10 MG Tab PO SCH (20:58)
[2021-08-25] MEDS: traZODone 50 MG Tab PO SCH (20:58)
[2021-08-25] MEDS: oxyCODONE 5 MG Tab PO SCH (20:59)
[2021-08-26] MEDS: Acetaminophen 500 MG Tab PO SCH ×6 (00:16→20:18)
[2021-08-26] MEDS: Pantoprazole 20 MG Tab, Delayed Release PO SCH (05:22)
[2021-08-26] MEDS: oxyCODONE 5 MG Tab PO PRN ×2 (05:23→16:52)
[2021-08-26] MEDS: metFORMIN 500 MG Tab PO SCH ×2 (08:57→18:49)
[2021-08-26] MEDS: Tamsulosin 0.4 MG Cap.ER PO SCH ×2 (08:58→18:50)
[2021-08-26] MEDS: Allopurinol 100 MG Tab PO SCH ×2 (08:58→20:19)
[2021-08-26] MEDS: Finasteride 5 MG Tab PO SCH (08:59)
[2021-08-26] MEDS: Diltiazem 180 MG Cap.CD PO SCH (08:59)
[2021-08-26] MEDS: Aspirin 81 MG Tab.EC PO SCH (08:59)
[2021-08-26] MEDS: Naproxen 500 MG Tab PO SCH ×2 (09:00→20:18)
[2021-08-26] MEDS: Enoxaparin 30 MG/0.3 ML Syringe SUBCUT SCH (09:02)
[2021-08-26] MEDS: atorvaSTATin 10 MG Tab PO SCH (20:18)
[2021-08-26] MEDS: traZODone 50 MG Tab PO SCH (20:18)
[2021-08-26] MEDS: oxyCODONE 5 MG Tab PO SCH (20:19)
[2021-08-27] MEDS: Acetaminophen 500 MG Tab PO SCH ×6 (01:46→20:52)
[2021-08-27] MEDS: Pantoprazole 20 MG Tab, Delayed Release PO SCH (06:22)
[2021-08-27] MEDS: metFORMIN 500 MG Tab PO SCH ×2 (07:42→17:27)
[2021-08-27] MEDS: Enoxaparin 30 MG/0.3 ML Syringe SUBCUT SCH (09:01)
[2021-08-27] MEDS: Tamsulosin 0.4 MG Cap.ER PO SCH ×2 (09:01→18:07)
[2021-08-27] MEDS: Finasteride 5 MG Tab PO SCH (09:02)
[2021-08-27] MEDS: Naproxen 500 MG Tab PO SCH ×2 (09:02→20:51)
[2021-08-27] MEDS: Aspirin 81 MG Tab.EC PO SCH (09:02)
[2021-08-27] MEDS: Diltiazem 180 MG Cap.CD PO SCH (09:02)
[2021-08-27] MEDS: Allopurinol 100 MG Tab PO SCH ×2 (09:02→20:53)
[2021-08-27] MEDS: oxyCODONE 5 MG Tab PO PRN (09:48)
[2021-08-27] MEDS ORDERED: Zolpidem 5 MG Tab PO PRN (17:43)
[2021-08-27] MEDS: atorvaSTATin 10 MG Tab PO SCH (20:51)
[2021-08-27] MEDS: traZODone 50 MG Tab PO SCH (20:52)
[2021-08-28] MEDS: Acetaminophen 500 MG Tab PO SCH ×6 (00:56→20:51)
[2021-08-28] MEDS: Pantoprazole 20 MG Tab, Delayed Release PO SCH (05:39)
[2021-08-28] MEDS: metFORMIN 500 MG Tab PO SCH ×2 (07:57→18:01)
[2021-08-28] MEDS: Diltiazem 180 MG Cap.CD PO SCH (08:03)
[2021-08-28] MEDS: Naproxen 500 MG Tab PO SCH ×2 (08:03→20:52)
[2021-08-28] MEDS: Tamsulosin 0.4 MG Cap.ER PO SCH ×2 (08:04→18:02)
[2021-08-28] MEDS: Aspirin 81 MG Tab.EC PO SCH (08:04)
[2021-08-28] MEDS: Enoxaparin 30 MG/0.3 ML Syringe SUBCUT SCH (08:04)
[2021-08-28] MEDS: Allopurinol 100 MG Tab PO SCH ×2 (08:04→20:53)
[2021-08-28] MEDS: Finasteride 5 MG Tab PO SCH (08:04)
[2021-08-28] MEDS ORDERED: Acetaminophen/HYDROcodone 325-5 MG Tab PO PRN (08:36)
[2021-08-28] MEDS ORDERED: traZODone 50 MG Tab PO PRN (08:42)
[2021-08-28] MEDS: Ciprofloxacin 500 MG Tab PO SCH ×2 (10:38→20:52)
[2021-08-28] MEDS: atorvaSTATin 10 MG Tab PO SCH (20:52)
[2021-08-29] MEDS: Acetaminophen 500 MG Tab PO SCH ×3 (00:33→08:06)
[2021-08-29] MEDS: Pantoprazole 20 MG Tab, Delayed Release PO SCH (05:03)
[2021-08-29] MEDS: metFORMIN 500 MG Tab PO SCH (07:22)
[2021-08-29] MEDS: Diltiazem 180 MG Cap.CD PO SCH (08:05)
[2021-08-29] MEDS: Naproxen 500 MG Tab PO SCH (08:05)
[2021-08-29] MEDS: Finasteride 5 MG Tab PO SCH (08:05)
[2021-08-29] MEDS: Allopurinol 100 MG Tab PO SCH (08:05)
[2021-08-29] MEDS: Ciprofloxacin 500 MG Tab PO SCH (08:06)
[2021-08-29] MEDS: Aspirin 81 MG Tab.EC PO SCH (08:06)
[2021-08-29] MEDS: Tamsulosin 0.4 MG Cap.ER PO SCH (08:06)
[2021-08-29] MEDS: Enoxaparin 30 MG/0.3 ML Syringe SUBCUT SCH (08:07)
[2021-08-29] MEDS ORDERED: Tuberculin, PPD 5 Units/0.1 ML 1 ML MDV IDERM ONE (09:00)
[2021-08-29 09:40] VITALS: BP 124/60; PULSE 72
== END 2021-08-29 10:45 | DRG 560 ==
LOC: FB.MS 11:28
PROVIDERS: ADMIT Family Medicine; ATTEND Family Medicine
DX: S72.141D Displaced intertrochanteric fracture of right femur, subsequent encounter for closed fracture with routine healing (principal); N13.8 Other obstructive and reflux uropathy; Z96.641 Presence of right artificial hip joint; K21.9 Gastro-esophageal reflux disease without esophagitis; N40.1 Benign prostatic hyperplasia with lower urinary tract symptoms; R33.8 Other retention of urine; Z66 Do not resuscitate; Z20.822 Contact with and (suspected) exposure to COVID-19; E78.00 Pure hypercholesterolemia, unspecified; M19.90 Unspecified osteoarthritis, unspecified site; I12.9 Hypertensive chronic kidney disease with stage 1 through stage 4 chronic kidney disease, or unspecified chronic kidney disease; E11.22 Type 2 diabetes mellitus with diabetic chronic kidney disease; N18.9 Chronic kidney disease, unspecified; E78.5 Hyperlipidemia, unspecified; M10.9 Gout, unspecified; G47.00 Insomnia, unspecified; Z86.718 Personal history of other venous thrombosis and embolism; Z79.01 Long term (current) use of anticoagulants; Z87.891 Personal history of nicotine dependence; Z79.82 Long term (current) use of aspirin; Z79.84 Long term (current) use of oral hypoglycemic drugs; Z79.899 Other long term (current) drug therapy; I25.2 Old myocardial infarction; Z98.41 Cataract extraction status, right eye; Z98.42 Cataract extraction status, left eye; Z90.49 Acquired absence of other specified parts of digestive tract; Z98.890 Other specified postprocedural states
CPT/HCPCS: 36415; 51701; 51702; 51798; 80048; 80053; 81001; 82947; 83880; 85025; 86140; 86580; 87086; 87088; 87186; 93970; 97110-GO; 97110-GP; 97116-GP; 97162-GP; 97166-GO; 97530-GO; 97530-GP; 97535-GO; 97542-GO; 99222; A9270-GY; J1650; U0002

== ENCOUNTER 2022-01-25 10:56 | Emergency (ER) | payer MEDICARE, BC | END 2022-01-25 11:23 | disposition home or self-care (01) | LOC: FB.ED 10:56 | DX: S00.03XA Contusion of scalp, initial encounter (principal); I10 Essential (primary) hypertension; E11.9 Type 2 diabetes mellitus without complications; E78.00 Pure hypercholesterolemia, unspecified; K21.9 Gastro-esophageal reflux disease without esophagitis; M19.90 Unspecified osteoarthritis, unspecified site; Z79.899 Other long term (current) drug therapy; Z79.82 Long term (current) use of aspirin; W19.XXXA Unspecified fall, initial encounter | CPT/HCPCS: 99283 ==

== ENCOUNTER 2022-02-01 13:23 | Emergency (ER) | payer MEDICARE, BC, MEDICAID ==
[2022-02-01] MEDS ORDERED: Ibuprofen Susp 100 MG/5 ML 5 ML UD Cup PO ONE (13:28)
[2022-02-01] MEDS ORDERED: fentaNYL 12 MCG/HR Transdermal Patch TRDERM SCH (13:30)
[2022-02-01] MEDS ORDERED: methylPREDNISolone Acetate 40 MG/ML SDV IM ONE (13:34)
[2022-02-01] MEDS ORDERED: Bupivacaine 0.5% 10 ML SDV INJECT ONE (13:34)
== END 2022-02-01 14:38 | disposition home or self-care (01) ==
LOC: FB.ED 13:23
DX: M70.61 Trochanteric bursitis, right hip (principal); I10 Essential (primary) hypertension; I25.2 Old myocardial infarction; M19.90 Unspecified osteoarthritis, unspecified site; E11.9 Type 2 diabetes mellitus without complications; K21.9 Gastro-esophageal reflux disease without esophagitis; Z79.899 Other long term (current) drug therapy; Z79.82 Long term (current) use of aspirin
CPT/HCPCS: 99283; A9270

== ENCOUNTER 2022-09-27 08:24 | Emergency (ER) | payer MEDICARE, BC, MEDICAID ==
[2022-09-27 09:51] LABS: ESTIMATED GFR 49 mL/min (>60)
[2022-09-27] MEDS ORDERED: Sodium Chloride 0.9% 1,000 ML IV SCH (12:15)
== END 2022-09-27 12:50 ==
LOC: FB.ED 08:24
DX: S22.41XA Multiple fractures of ribs, right side, initial encounter for closed fracture (principal); E86.0 Dehydration; N39.0 Urinary tract infection, site not specified; I12.9 Hypertensive chronic kidney disease with stage 1 through stage 4 chronic kidney disease, or unspecified chronic kidney disease; E11.22 Type 2 diabetes mellitus with diabetic chronic kidney disease; N18.9 Chronic kidney disease, unspecified; E78.00 Pure hypercholesterolemia, unspecified; I25.2 Old myocardial infarction; K21.9 Gastro-esophageal reflux disease without esophagitis; M10.9 Gout, unspecified; Z79.82 Long term (current) use of aspirin; Z79.84 Long term (current) use of oral hypoglycemic drugs; Z79.899 Other long term (current) drug therapy; W18.30XA Fall on same level, unspecified, initial encounter
CPT/HCPCS: 36415; 71101-RT; 73080-RT; 73502-RT; 73562-RT; 80053; 81001; 82550; 85025; 85610; 85730; 87086; 87088; 87186; 99284; J7030

== ENCOUNTER 2022-10-01 08:15 | Inpatient (IN) | payer MEDICARE, BC, MEDICAID ==
[2022-10-01 09:28] LABS: ESTIMATED GFR 36 mL/min (>60)
[2022-10-01 10:01] LABS: CORONAVIRUS COVID-19 NAA NEGATIVE (NEGATIVE)
[2022-10-01] MEDS ORDERED: Piperacillin/Tazobactam 3.375 GM in Sodium Chloride 0.9% 50 ML IV SCH (10:15)
[2022-10-01] MEDS ORDERED: Apixaban 2.5 MG Tab PO SCH (10:30)
[2022-10-01] MEDS ORDERED: Furosemide 20 MG/2 ML VIAL IVPUSH SCH (10:30)
[2022-10-01] MEDS ORDERED: Sodium Chloride 0.9% 1,000 ML IV SCH (11:30)
[2022-10-01] MEDS ORDERED: guaiFENesin 100 MG/5 ML Soln 5 ML UD Cup PO PRN (14:38)
[2022-10-01] MEDS ORDERED: MENTHOL 5 MG PO PRN (14:38)
[2022-10-01] MEDS ORDERED: Acetaminophen 325 MG Tab PO PRN (14:38)
[2022-10-01] MEDS ORDERED: Aluminum Hydroxide/Magnesium Hydroxide Susp 30 ML Cup PO PRN (15:01)
[2022-10-01] MEDS ORDERED: Loperamide 2 MG Cap PO PRN (15:10)
[2022-10-01] MEDS ORDERED: Polyvinyl Alcohol 1.4% Ophth Soln 15 ML Bottle EYEBOTH PRN (15:12)
[2022-10-01] MEDS: Furosemide 20 MG/2 ML VIAL IVPUSH SCH (16:24)
[2022-10-01] MEDS: Polyvinyl Alcohol 1.4% Ophth Soln 15 ML Bottle EYEBOTH SCH ×2 (16:24→20:29)
[2022-10-01] MEDS: traMADol 50 MG Tab PO SCH ×2 (16:24→20:35)
[2022-10-01] MEDS: Gabapentin 100 MG Cap PO SCH ×2 (16:29→20:35)
[2022-10-01] MEDS: Piperacillin/Tazobactam 3.375 GM in Sodium Chloride 0.9% 50 ML IV SCH ×2 (17:33→22:57)
[2022-10-01] MEDS: Mirtazapine 15 MG Tab PO SCH (20:30)
[2022-10-01] MEDS: Calcium Carbonate 500 MG Tablet PO SCH (20:30)
[2022-10-01] MEDS: Melatonin 3 MG Tab PO SCH (20:30)
[2022-10-01] MEDS: Apixaban 5 MG Tab PO SCH (20:30)
[2022-10-01] MEDS: Allopurinol 100 MG Tab PO SCH (20:31)
[2022-10-01] MEDS ORDERED: Cetirizine 10 MG Tab PO SCH (21:00)
[2022-10-02] MEDS: Piperacillin/Tazobactam 3.375 GM in Sodium Chloride 0.9% 50 ML IV SCH ×4 (05:00→23:03)
[2022-10-02] MEDS: Sodium Chloride 0.9% 10 ML Syringe FLUSH PRN ×6 (05:31→16:05)
[2022-10-02] MEDS: Pantoprazole 20 MG Tab, Delayed Release PO SCH (06:46)
[2022-10-02 06:49] LABS: ESTIMATED GFR 49 mL/min (>60)
[2022-10-02] MEDS: Allopurinol 100 MG Tab PO SCH ×2 (08:32→20:34)
[2022-10-02] MEDS: Calcium Carbonate 500 MG Tablet PO SCH ×2 (08:32→20:33)
[2022-10-02] MEDS: Polyethylene Glycol 3350 Powder 17 GM Packet PO SCH (08:32)
[2022-10-02] MEDS: Ascorbic Acid 500 MG Tab PO SCH (08:32)
[2022-10-02] MEDS: Apixaban 5 MG Tab PO SCH ×2 (08:32→20:32)
[2022-10-02] MEDS: Empagliflozin 10 MG Tab PO SCH (08:32)
[2022-10-02] MEDS: Aspirin 81 MG Tab.EC PO SCH (08:32)
[2022-10-02] MEDS: Polyvinyl Alcohol 1.4% Ophth Soln 15 ML Bottle EYEBOTH SCH ×3 (08:34→20:32)
[2022-10-02] MEDS: Furosemide 20 MG/2 ML VIAL IVPUSH SCH ×2 (08:34→13:20)
[2022-10-02] MEDS: Gabapentin 100 MG Cap PO SCH ×3 (08:35→20:31)
[2022-10-02] MEDS: traMADol 50 MG Tab PO SCH ×3 (08:37→20:30)
[2022-10-02] MEDS ORDERED: Furosemide 40 MG Tab PO SCH (09:00)
[2022-10-02] MEDS: Melatonin 3 MG Tab PO SCH (20:32)
[2022-10-02] MEDS: Mirtazapine 15 MG Tab PO SCH (20:33)
[2022-10-03] MEDS: Piperacillin/Tazobactam 3.375 GM in Sodium Chloride 0.9% 50 ML IV SCH (04:50)
[2022-10-03] MEDS: Pantoprazole 20 MG Tab, Delayed Release PO SCH (06:21)
[2022-10-03] MEDS: Furosemide 20 MG/2 ML VIAL IVPUSH SCH (08:18)
[2022-10-03] MEDS: Polyvinyl Alcohol 1.4% Ophth Soln 15 ML Bottle EYEBOTH SCH ×3 (08:19→20:11)
[2022-10-03] MEDS: Apixaban 5 MG Tab PO SCH ×2 (08:20→20:10)
[2022-10-03] MEDS: Aspirin 81 MG Tab.EC PO SCH (08:20)
[2022-10-03] MEDS: Empagliflozin 10 MG Tab PO SCH (08:20)
[2022-10-03] MEDS: Polyethylene Glycol 3350 Powder 17 GM Packet PO SCH (08:21)
[2022-10-03] MEDS: Calcium Carbonate 500 MG Tablet PO SCH ×2 (08:21→20:10)
[2022-10-03] MEDS: Allopurinol 100 MG Tab PO SCH ×2 (08:22→20:12)
[2022-10-03] MEDS: Ascorbic Acid 500 MG Tab PO SCH (08:25)
[2022-10-03] MEDS: traMADol 50 MG Tab PO SCH ×3 (08:31→20:10)
[2022-10-03] MEDS: Gabapentin 100 MG Cap PO SCH ×3 (08:31→20:11)
[2022-10-03] MEDS ORDERED: Polyethylene Glycol 3350 Powder 17 GM Packet PO PRN (08:47)
[2022-10-03] MEDS: Ciprofloxacin 250 MG Tab PO SCH ×2 (10:24→20:10)
[2022-10-03] MEDS: Melatonin 3 MG Tab PO SCH (20:10)
[2022-10-03] MEDS: Mirtazapine 15 MG Tab PO SCH (20:12)
[2022-10-04] MEDS: Pantoprazole 20 MG Tab, Delayed Release PO SCH (06:20)
[2022-10-04 07:00] LABS: ESTIMATED GFR 65 mL/min (>60)
[2022-10-04] MEDS: traMADol 50 MG Tab PO SCH (08:03)
[2022-10-04] MEDS: Gabapentin 100 MG Cap PO SCH (08:03)
[2022-10-04] MEDS: Ascorbic Acid 500 MG Tab PO SCH (08:04)
[2022-10-04] MEDS: Ciprofloxacin 250 MG Tab PO SCH (08:04)
[2022-10-04] MEDS: Empagliflozin 10 MG Tab PO SCH (08:05)
[2022-10-04] MEDS: Aspirin 81 MG Tab.EC PO SCH (08:05)
[2022-10-04] MEDS: Polyvinyl Alcohol 1.4% Ophth Soln 15 ML Bottle EYEBOTH SCH (08:05)
[2022-10-04] MEDS: Allopurinol 100 MG Tab PO SCH (08:05)
[2022-10-04] MEDS: Apixaban 5 MG Tab PO SCH (08:06)
[2022-10-04] MEDS: Calcium Carbonate 500 MG Tablet PO SCH (08:06)
[2022-10-04] MEDS ORDERED: Furosemide 40 MG Tab PO SCH (09:00)
[2022-10-04] MEDS ORDERED: Bacitracin Oint 28.35 GM Tube TOP SCH (09:30)
== END 2022-10-04 10:45 | DRG 194 ==
LOC: FB.ED 08:15 → FB.MS 10:25
PROVIDERS: ADMIT Emergency Medicine; ATTEND Family Medicine
DX: J18.9 Pneumonia, unspecified organism (principal); R64 Cachexia; J69.0 Pneumonitis due to inhalation of food and vomit; Z51.5 Encounter for palliative care; R09.02 Hypoxemia; H35.30 Unspecified macular degeneration; E88.09 Other disorders of plasma-protein metabolism, not elsewhere classified; N40.0 Benign prostatic hyperplasia without lower urinary tract symptoms; S22.41XA Multiple fractures of ribs, right side, initial encounter for closed fracture; Z66 Do not resuscitate; E78.5 Hyperlipidemia, unspecified; M19.90 Unspecified osteoarthritis, unspecified site; M10.9 Gout, unspecified; R62.7 Adult failure to thrive; Z20.822 Contact with and (suspected) exposure to COVID-19; E86.0 Dehydration; I12.9 Hypertensive chronic kidney disease with stage 1 through stage 4 chronic kidney disease, or unspecified chronic kidney disease; E11.22 Type 2 diabetes mellitus with diabetic chronic kidney disease; N18.9 Chronic kidney disease, unspecified; N13.9 Obstructive and reflux uropathy, unspecified; I25.10 Atherosclerotic heart disease of native coronary artery without angina pectoris; E78.00 Pure hypercholesterolemia, unspecified; Z96.641 Presence of right artificial hip joint; Z98.890 Other specified postprocedural states; R13.10 Dysphagia, unspecified; K21.9 Gastro-esophageal reflux disease without esophagitis; N40.1 Benign prostatic hyperplasia with lower urinary tract symptoms; I25.2 Old myocardial infarction; N13.8 Other obstructive and reflux uropathy; Z90.49 Acquired absence of other specified parts of digestive tract; Z98.41 Cataract extraction status, right eye; Z98.42 Cataract extraction status, left eye; R33.8 Other retention of urine; Z79.01 Long term (current) use of anticoagulants; Z97.8 Presence of other specified devices; Z68.23 Body mass index [BMI] 23.0-23.9, adult; Z79.82 Long term (current) use of aspirin; Z79.84 Long term (current) use of oral hypoglycemic drugs; Z79.899 Other long term (current) drug therapy; Z96.0 Presence of urogenital implants; Z95.5 Presence of coronary angioplasty implant and graft; Z86.718 Personal history of other venous thrombosis and embolism; W07.XXXA Fall from chair, initial encounter
CPT/HCPCS: 0241U; 36415; 51702; 71045; 80048; 80053; 81001; 83605; 83880; 84484; 85025; 86140; 87040; 87077; 87186; 93005; 93010; 96365; 99223; 99233; 99238; 99285; 99285-25; A9270-GY; J1940; J2543; J3490; J7030; U0002